=== PATIENT | female | born 1985 | race African-American/Black ===

== ENCOUNTER 2019-04-08 08:08 | Emergency (ER) | payer SELFPAY ==
[2019-04-08] MEDS ORDERED: chlordiazePOXIDE HCl 25 MG CAP ONE (10:19)
== END 2019-04-08 10:37 | disposition home or self-care (01) ==
LOC: ERS 08:08
DX: F10.239 Alcohol dependence with withdrawal, unspecified (principal); F41.9 Anxiety disorder, unspecified; F17.210 Nicotine dependence, cigarettes, uncomplicated
CPT/HCPCS: 99284

== ENCOUNTER 2019-04-20 21:22 | Emergency (ER) | payer SELFPAY ==
[2019-04-20] MEDS ORDERED: diphenhydrAMINE 25 MG CAP ONE (22:33)
[2019-04-22 17:32] LABS: Chlamydia by PCR Not Detected (NotDetected); GC by PCR Not Detected (NotDetected)
== END 2019-04-20 22:35 | disposition home or self-care (01) ==
LOC: ERS 21:22
DX: N89.8 Other specified noninflammatory disorders of vagina (principal); F41.9 Anxiety disorder, unspecified; F17.200 Nicotine dependence, unspecified, uncomplicated
CPT/HCPCS: 87480; 87491; 87510; 87591; 87660; 99283; Q0163

== ENCOUNTER 2019-04-29 09:02 | Emergency (ER) | payer SELFPAY ==
[2019-04-29] MEDS ORDERED: AMOXicillin 250 MG CAP ONE (10:15)
[2019-04-29] MEDS ORDERED: Ibuprofen 800 MG TAB ONE (10:15)
== END 2019-04-29 10:21 ==
LOC: ERS 09:02
DX: K02.9 Dental caries, unspecified (principal); F41.9 Anxiety disorder, unspecified; F17.200 Nicotine dependence, unspecified, uncomplicated
CPT/HCPCS: 99282